=== PATIENT | female | born 1980 | race Caucasian/White ===

== ENCOUNTER 2020-10-17 14:38 | Outpatient (CLI) | payer MEDICAID ==
[2020-10-17] MEDS ORDERED: TRAZ-251 PO (15:39)
[2020-10-17] MEDS ORDERED: AMPH30TA3 PO (15:39)
[2020-10-17] MEDS ORDERED: IBUP200C5 PO (15:39)
[2020-10-17 15:46] LABS: CLARITY,URINE CLEAR (Clear); COLOR,URINE YELLOW (Yellow); GLUCOSE, URINE NEGATIVE (Neg); KETONES,URINE 15 mg/dl (Neg); LEUKOCYTE ESTERASE ,URINE TRACE (Neg); NITRITES, URINE NEGATIVE (Neg); OCCULT BLOOD,URINE TRACE-LYSED (Neg); PROTEIN,URINE NEGATIVE (Neg); UROBILINOGEN,URINE 0.2 E.U/dL (0.2-1.0)
[2020-10-17 15:47] LABS: BASOPHILS # (AUTO) 0.1 X10'3 (0-0.2); BASOPHILS % (AUTO) 0.7 % (0-1); EOSINOPHILS % (AUTO) 0.2 % (0-6); LYMPHOCYTES # (AUTO) 1.3 X10'3 (1.1-4.8); LYMPHOCYTES % (AUTO) 18.8 % (21-51); MEAN CORPUSCULAR HEMOGLOBIN 31.8 PG (27.0-31.0); MEAN CORPUSCULAR HGB CONC 33.6 g/dL (33.0-36.5); MEAN CORPUSCULAR VOLUME 94.6 FL (78-98); MEAN PLATELET VOLUME 8.6 FL (7.4-10.4); MONOCYTES # (AUTO) 0.5 X10'3 (0-0.9); NEUTROPHILS # (AUTO) 5.2 X10'3 (1.8-7.7); NEUTROPHILS % (AUTO) 73.3 % (42-75); PRE OP HEMATOCRIT 38.3 % (35.0-45.0); PRE OP HEMOGLOBIN 12.9 g/dL (12.0-16.0); PRE OP PLATELET COUNT 244 X10'3 (140-440); RED BLOOD COUNT 4.05 X10'6 (4.20-5.60); RED CELL DISTRIBUTION WIDTH 12.6 % (11.5-14.5)
[2020-10-17 15:52] LABS: UA COLLECTION TYPE NON-SPECIFIED
[2020-10-17 15:55] LABS: MUCUS STRANDS MANY /LPF (Neg)
[2020-10-17 15:58] LABS: SQUAMOUS EPITHELIAL CELL,UR MODERATE /LPF (FEW)
[2020-10-17 16:00] LABS: RBC,URINE 0-2 /HPF (0-2)
[2020-10-17 16:01] LABS: ALBUMIN 3.9 G/DL (3.4-5.0); ALBUMIN/GLOBULIN RATIO 1.1 (1.1-1.5); ALKALINE PHOSPHATASE 45 IU/L (46-116); BLOOD UREA NITROGEN 18 MG/DL (7-18); BUN/CREATININE RATIO 18.9 (6.6-38.0); CALCIUM 9.2 MG/DL (8.5-10.1); CHLORIDE 104 MMOL/L (99-107); CREATININE 0.95 MG/DL (0.40-0.90); PRE OP ALT 15 U/L (30-65); PRE OP ANION GAP 10 (8-16); PRE OP AST 13 U/L (10-37); PRE OP BILIRUB, TOTAL 0.5 MG/DL (0.0-1.0); PRE OP GLUCOSE 87 MG/DL (70-104); PRE OP POTASSIUM 3.9 MMOL/L (3.4-5.1); PRE OP SODIUM 140 MMOL/L (135-145); TOTAL CARBON DIOXIDE 26.4 MMOL/L (24-32); TOTAL PROTEIN 7.3 G/DL (6.4-8.2); eGFR 66 ML/MIN
[2020-10-17 16:02] LABS: BACTERIA,URINE NONE SEEN /HPF (Neg); WBC,URINE 0-4 /HPF (0-4)
[2020-10-17 16:36] LABS: HCG SERUM QL NEGATIVE
== END 2020-10-17 23:59 | disposition home or self-care (01) ==
LOC: PRE-OP 14:38 → EDSTATUS 10-23 11:15
PROVIDERS: ATTEND Obstetrics & Gynecology Obstetrics
DX: N93.9 Abnormal uterine and vaginal bleeding, unspecified (principal); Z20.828 Contact with and (suspected) exposure to other viral communicable diseases
CPT/HCPCS: 36415; 71046; 80053; 81001; 84703; 85025; 86885; 86900; 86901; 87088; 87635; 93005

== ENCOUNTER 2020-11-27 10:06 | Day surgery (SDC) | payer MEDICAID ==
[2020-11-20 11:53] LABS: BASOPHILS % (AUTO) 0.8 % (0-1); EOSINOPHILS % (AUTO) 0.7 % (0-6); LYMPHOCYTES # (AUTO) 1.4 X10'3 (1.1-4.8); LYMPHOCYTES % (AUTO) 25.7 % (21-51); MEAN CORPUSCULAR HEMOGLOBIN 31.8 PG (27.0-31.0); MEAN CORPUSCULAR HGB CONC 33.5 g/dL (33.0-36.5); MEAN CORPUSCULAR VOLUME 94.7 FL (78-98); MEAN PLATELET VOLUME 8.5 FL (7.4-10.4); MONOCYTES # (AUTO) 0.5 X10'3 (0-0.9); MONOCYTES % (AUTO) 8.5 % (2-12); NEUTROPHILS # (AUTO) 3.5 X10'3 (1.8-7.7); NEUTROPHILS % (AUTO) 64.3 % (42-75); PRE OP HEMATOCRIT 37.5 % (35.0-45.0); PRE OP HEMOGLOBIN 12.6 g/dL (12.0-16.0); PRE OP PLATELET COUNT 299 X10'3 (140-440); RED BLOOD COUNT 3.96 X10'6 (4.20-5.60)
[2020-11-20 12:04] LABS: ALBUMIN 3.8 G/DL (3.4-5.0); ALBUMIN/GLOBULIN RATIO 1.1 (1.1-1.5); ALKALINE PHOSPHATASE 39 IU/L (46-116); BLOOD UREA NITROGEN 18 MG/DL (7-18); BUN/CREATININE RATIO 20.9 (6.6-38.0); CALCIUM 8.6 MG/DL (8.5-10.1); CHLORIDE 106 MMOL/L (99-107); CREATININE 0.86 MG/DL (0.40-0.90); PRE OP ALT 19 U/L (30-65); PRE OP ANION GAP 8 (8-16); PRE OP AST 15 U/L (10-37); PRE OP BILIRUB, TOTAL 0.3 MG/DL (0.0-1.0); PRE OP GLUCOSE 92 MG/DL (70-104); PRE OP SODIUM 142 MMOL/L (135-145); TOTAL CARBON DIOXIDE 28.2 MMOL/L (24-32); TOTAL PROTEIN 7.3 G/DL (6.4-8.2); eGFR 74 ML/MIN
[2020-11-20 12:32] LABS: HCG SERUM QL NEGATIVE
[~2020-11-27] VITALS: Ht 162.6 cm; Wt 63.5 kg
[2020-11-27] VITALS (13 sets, daily range): BP systolic 95–115; BP diastolic 61–89
[~2020-11-27 10:06] MED LIST: AMPH30TA3 PO; IBUP200C5 PO; TRAZ-251 PO; ceFOXitin 2GM-NS 100mL ADDvant 100 ML IV ONE; famotidine 20mg tablet PO ONE; ringers solution, lacted 1,000 ML IV SCH
[2020-11-27] MEDS ORDERED: BUPIVAcaine/PF 2.5 mg/ml (0.25%) 30ml vial ONE (12:20)
[2020-11-27] MEDS ORDERED: meperidine/PF 25mg/ml syringe IV PRN ×3 (12:35)
[2020-11-27] MEDS ORDERED: proCHLORperazine 10 MG/2 ml inj IV PRN (12:35)
[2020-11-27] MEDS ORDERED: ringers solution, lacted 1,000 ML IV SCH (12:35)
[2020-11-27] MEDS ORDERED: ondansetron/PF 4mg/2ml inj IV PRN (12:35)
[2020-11-27] MEDS ORDERED: morphine 4 MG/ML inj SYRINge IV PRN (12:35)
[2020-11-27] MEDS ORDERED: morphine 2 MG/ML inj. syringe IV PRN (12:35)
[2020-11-27] MEDS ORDERED: neostigmine methylsulfate 1 MG/ML 10ml vial ONE (13:15)
[2020-11-27] MEDS ORDERED: ondansetron/PF 4mg/2ml inj ONE ×2 (13:15→13:36)
[2020-11-27] MEDS ORDERED: sevoflurane 250ml liquid IH ONE (13:15)
[2020-11-27] MEDS ORDERED: dexamethasone sod phosphate 10mg/ml inj ONE (13:15)
[2020-11-27] MEDS ORDERED: glycopyrrolate 0.2mg/ml inj ONE (13:15)
[2020-11-27] MEDS ORDERED: fentaNYL/PF 50MCG/1 ML 2ML syringe ONE (13:22)
[2020-11-27] MEDS ORDERED: midazolam 2 mg/2 ml injection ONE (13:22)
[2020-11-27] MEDS ORDERED: propofol inj 20 ML IV ONE (13:23)
[2020-11-27] MEDS ORDERED: LIDOcaine 2% (20mg/ml) 5ml vial ONE (13:23)
[2020-11-27] MEDS ORDERED: rocuronium 10mg/ml inj IV ONE (13:23)
[2020-11-27] MEDS ORDERED: ketorolac trometh. 30mg/ml inj. ONE (14:17)
--- NOTE | 2020-11-27 14:27 | NUR ---
Received from OR via [facility] , accompanied by Anesthesiologist JOSÉ MIGUEL and report given by Anesthesiolgist. PATIENT WITH 20G PIV IN LEFT UE RUNNING LR AT 100. MEDICATED FOR PAIN UPON ARRIVAL. 2 ABDOMINAL LAP SITES PRESENT. NO DRAINAGE. NO DRESSING. SAGAR PAD IN PLACE NO DRAINAGE. PATIENT WITH 10L MASK ON WIOTH 100% SATURATIONS. Addendum: 11/27/20 at 1440 by Marcel Quach RN, RN Amended: Links added.
[2020-11-27] MEDS ORDERED: HYDROcodone/acetaminophen 10/325mg tab PO ONE (15:15)
--- NOTE | 2020-11-27 16:17 | NUR ---
I HAVE REVIEWED D/C INSTRUCTIONS WITH PATIENT AND FAMILY AND THEY HAVE VERBALIZED UNDERSTANDING. PATIENT D/C HOME WITH ALL BELONGINGS AND FAMILY GAVE TRANSPORT HOME. PATIENT HAS MET ALL DC CRITERIA FOR HOME. VSS. PAIN AT A TOLERABLE LEVEL. IV OUT WITHOUT COMPLICATION. PAD IN PLACE AND ORAL MEDICATION ADMINISTERED PRIOR. Addendum: 11/27/20 at 1630 by Marcel Quach RN, RN Amended: Links added.
== END 2020-11-27 16:17 | disposition home or self-care (01) ==
LOC: PAS 10:06
PROVIDERS: ATTEND Obstetrics & Gynecology Obstetrics
DX: Z30.2 Encounter for sterilization (principal); N93.0 Postcoital and contact bleeding; Z20.822 Contact with and (suspected) exposure to COVID-19; F98.8 Other specified behavioral and emotional disorders with onset usually occurring in childhood and adolescence; F41.9 Anxiety disorder, unspecified; G43.909 Migraine, unspecified, not intractable, without status migrainosus; M19.90 Unspecified osteoarthritis, unspecified site; Z79.899 Other long term (current) drug therapy; Z98.890 Other specified postprocedural states; Z80.3 Family history of malignant neoplasm of breast; Z83.3 Family history of diabetes mellitus
CPT/HCPCS: 36415; 58558; 58671; 80053; 82948; 84703; 85025; 86885; 86900; 86901; 87635; A4264; J0694; J1885; J2001; J2175; J2250; J2270; J2405; J2704; J3010; J3490; A4355; A4618; A6258; A7000; J1100; J2710; J7030; J7120

== ENCOUNTER 2021-01-17 16:54 | Emergency (ER) | payer MEDICAID ==
[~2021-01-17] VITALS: Ht 162.6 cm; Wt 65.9 kg
[~2021-01-17 16:54] MED LIST changes: -ceFOXitin 2GM-NS 100mL ADDvant 100 ML IV ONE; -famotidine 20mg tablet PO ONE; -ringers solution, lacted 1,000 ML IV SCH
[2021-01-17] MEDS ORDERED: TETanus/Pertussis (Acell)/Diphther VAC/PF (Tdap-Adult) 0.5ml syringe IMVAC ONE (17:55)
[2021-01-17 18:34] VITALS: BP 106/70
== END 2021-01-17 18:37 | disposition home or self-care (01) ==
LOC: ER 16:56
DX: S51.832A Puncture wound without foreign body of left forearm, initial encounter (principal); Z72.89 Other problems related to lifestyle; Z79.899 Other long term (current) drug therapy; W29.4XXA Contact with nail gun, initial encounter; Y93.89 Activity, other specified; Y92.89 Other specified places as the place of occurrence of the external cause; Y99.8 Other external cause status
CPT/HCPCS: 90471; 90715; 99283